=== PATIENT | female | born 1995 | race Caucasian/White ===

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

== ENCOUNTER 2017-04-14 11:44 | Outpatient (CLI) | payer OTHER ==
--- NOTE | 2017-04-14 12:20 | Diagnostic Imaging Report ---
DORON LUNA [facility] [address] [facility] [address] [address] Report Submission Date: Apr 14, 2017 12:12:37 PM ABALONE FISHERMAN Patient Study Name: NAGA SON Date: Apr 14, 2017 11:56:47 AM ABALONE FISHERMAN Modality Type: CR Gender: F Description: SPINE : 89 Institution: [facility] Physician: DORON LUNA Examination: Cervical spine History: Discomfort Comparison exams: None available Findings: 3 views of the cervical spine demonstrate normal height and alignment. No anterior compression. No abnormal listhesis. No odontoid abnormality. No prevertebral abnormality Impression: No acute osseous abnormality Electronically signed on Apr 14, 2017 12:12:37 PM ABALONE FISHERMAN by: Alex WHITLEY
== END 2017-04-14 11:45 ==
LOC: RAD 11:44
PROVIDERS: ATTEND Physician Assistant
DX: M54.2 Cervicalgia (principal)
CPT/HCPCS: 72040